=== PATIENT | male | born 1950 | race Caucasian/White ===

== ENCOUNTER 2019-07-22 10:59 | Emergency (ER) | payer MEDICARE ==
[2019-07-22] MEDS ORDERED: Sodium Chloride 0.9% 10 ML Syringe FLUSH PRN (11:09)
[2019-07-22] MEDS ORDERED: Aspirin 81 MG Tab.Chew PO ONE (11:09)
[2019-07-22] MEDS ORDERED: Nitroglycerin 0.4 MG Tab.SL SL PRN (11:09)
[2019-07-22] MEDS ORDERED: Morphine 4 MG/ML Syringe IVPUSH PRN (11:09)
--- NOTE | 2019-07-22 11:13 | EDM.PDOC ---
ED HPI GENERAL MEDICAL PROBLEM - General Chief Complaint: Chest Pain Stated Complaint: POSSIBLE STROKE Time Seen by Provider: 07/22/19 11:09 Source of Information: Reports: Patient, RN Notes Reviewed History Limitations: Reports: No Limitations - History of Present Illness INITIAL COMMENTS - FREE TEXT/NARRATIVE: 69-year-old gentleman presents emergency department today complaint of diaphoresis and palpitations, he does have a known history coronary artery disease as well as congestive heart failure with reduced ejection fraction around 25%. Does have a history of myocardial infarction in the past. He states that today he was out working in the yard suddenly became very diaphoretic and felt palpitations he did sit down and rest felt some relief reported to the emergency department for further evaluation. He is able to provide a more detailed history at this time while he was working he was carrying a bird house that was heavy suddenly became diaphoretic week short of breath and nauseated, upon resting he had improvement and resolution of his systems. He does have a history of paroxysmal atrial fibrillation of which she takes Eliquis was last in atrial fibrillation in 2018 cardioversion to convert to sinus rhythm also takes sotalol and carvedilol - Related Data Allergies Allergy/AdvReac Type Severity Reaction Status Date / Time amoxicillin Allergy Facial Verified 07/22/19 11:12 Swelling Sulfa (Sulfonamide Allergy Hives Verified 07/22/19 11:12 Antibiotics) Home Meds: Home Meds Apixaban [Eliquis] 5 mg PO BID 07/22/19 [History] Carvedilol [Coreg] 1 tab PO BID 07/22/19 [History] Furosemide [Lasix] 1 tab PO DAILY 07/22/19 [History] Lisinopril 1 tab PO DAILY 07/22/19 [History] Sotalol HCl [Sotalol] 1 tab PO BID 07/22/19 [History] Past Medical History Cardiovascular History: Reports: CAD, Heart Failure, DC Social & Family History - Tobacco Use Smoking Status *Q: Former Smoker ED ROS GENERAL - Review of Systems Review Of Systems: See Below Constitutional: Reports: Diaphoresis HEENT: Reports: No Symptoms Respiratory: Reports: No Symptoms Cardiovascular: Reports: Palpitations GI/Abdominal: Reports: No Symptoms : Reports: No Symptoms ED EXAM, GENERAL - Physical Exam Exam: See Below Exam Limited By: No Limitations General Appearance: Alert, Mild Distress Respiratory/Chest: No Respiratory Distress, Lungs Clear, Normal Breath Sounds Cardiovascular: Regular Rate, Rhythm, No Murmur GI/Abdominal: Soft, Non-Tender Extremities: Normal Inspection, Non-Tender, No Pedal Edema Course - Vital Signs Last Recorded V/S: Last Vital Signs Temp 95 F L 07/22/19 11:15 Pulse 59 L 07/22/19 13:35 Resp 19 07/22/19 13:35 BP 119/62 07/22/19 13:35 Pulse Ox 97 07/22/19 13:35 - Orders/Labs/Meds Orders: Active Orders 24 hr Category Date Time Status Cardiac Monitoring [RC] .As Directed Care 07/22/19 11:09 Active Cardiac Monitoring [RC] STAT Care 07/22/19 14:10 Active EKG Documentation Completion [RC] ASDIRECTED Care 07/22/19 11:10 Active Peripheral IV Care [RC] . DIRECTED Care 07/22/19 11:10 Active Heparin Sodium/D5W [Heparin 25,000 Units in D5W 500 ML] Med 07/22/19 14:15 Active 25,000 units in 500 ml IV TITRATE Morphine Med 07/22/19 11:09 Active 4 mg IVPUSH Q10M PRN Nitroglycerin [Nitrostat] Med 07/22/19 11:09 Active 0.4 mg SL Q5M PRN Sodium Chloride 0.9% [Saline Flush] Med 07/22/19 11:09 Active 10 ml FLUSH ASDIRECTED PRN atorvaSTATin [Lipitor] Med 07/22/19 15:21 Once 40 mg PO ONETIME ONE Peripheral IV Insertion Adult [OM.PC] Stat Oth 07/22/19 11:09 Ordered Saline Lock Insert [OM.PC] Stat Oth 07/22/19 11:09 Ordered EKG 12 Lead [EK] Stat Ther 07/22/19 11:10 Ordered Medication Orders Heparin Sodium/Dextrose (Heparin 25,000 Units In D5w 500 Ml) 25,000 units in 500 mls @ 16.765 mls/hr IV TITRATE REMY; Protocol Last Admin: 07/22/19 14:48 Dose: 12 units/kg/hr, 16.765 mls/hr Morphine Sulfate (Morphine) 4 mg IVPUSH Q10M PRN PRN Reason: Chest Pain Stop: 07/23/19 11:10 Nitroglycerin (Nitrostat) 0.4 mg SL Q5M PRN PRN Reason: Chest Pain Stop: 07/23/19 11:10 Sodium Chloride (Saline Flush) 10 ml FLUSH ASDIRECTED PRN PRN Reason: Keep Vein Open Last Admin: 07/22/19 11:29 Dose: 10 ml Labs: Laboratory Tests 07/22/19 07/22/19 07/22/19 Range/Units 11:15 11:15 13:30 WBC 7.2 (4.5-11.0) K/uL RBC 5.13 (4.30-5.90) M/uL Hgb 15.5 H (12.0-15.0) g/dL Hct 46.5 (40.0-54.0) % MCV 91 (80-98) fL MCH 30 (27-31) pg MCHC 33 (32-36) % Plt Count 158 (150-400) K/uL Neut % (Auto) 58 (36-66) % Lymph % (Auto) 30 (24-44) % Nelson % (Auto) 8 H (2-6) % Eos % (Auto) 3 (2-4) % Baso % (Auto) 1 (0-1) % Sodium 139 L (140-148) mmol/L Potassium 4.3 (3.6-5.2) mmol/L Chloride 102 (100-108) mmol/L Carbon Dioxide 27 (21-32) mmol/L Anion Gap 14.3 H (5.0-14.0) mmol/L BUN 13 (7-18) mg/dL Creatinine 1.3 (0.8-1.3) mg/dL Est Cr Clr Drug Dosing 52.24 mL/min Estimated GFR (MDRD) 55 L (>60) Glucose 184 H (74-106) mg/dL Calcium 9.1 (8.5-10.1) mg/dL Total Bilirubin 0.9 (0.2-1.0) mg/dL AST 66 H (15-37) U/L ALT 37 (12-78) U/L Alkaline Phosphatase 133 H (46-116) U/L Troponin I < 0.017 0.107 H* (0.000-0.056) ng/mL Total Protein 6.6 (6.4-8.2) g/dL Albumin 3.4 (3.4-5.0) g/dL Globulin 3.2 (2.3-3.5) g/dL Albumin/Globulin Ratio 1.1 L (1.2-2.2) Meds: Medications Generic Name Dose Route Start Last Admin Trade Name Freq PRN Reason Stop Dose Admin Heparin Sodium/Dextrose 25,000 units in 500 mls @ 16.765 mls/hr 07/22/19 14: 15 07/22/19 14:48 Heparin 25,000 Units In D5w 500 Ml IV 12 units/kg/hr TITRATE REMY 16.765 mls/hr Administration Protocol 12 UNITS/KG/HR Morphine Sulfate 4 mg 07/22/19 11:09 Morphine IVPUSH 07/23/19 11:10 Q10M PRN Chest Pain Nitroglycerin 0.4 mg 07/22/19 11:09 Nitrostat SL 07/23/19 11:10 Q5M PRN Chest Pain Sodium Chloride 10 ml 07/22/19 11:09 07/22/19 11:29 Saline Flush FLUSH 10 ml ASDIRECTED PRN Administration Keep Vein Open Discontinued Medications Generic Name Dose Route Start Last Admin Trade Name Freq PRN Reason Stop Dose Admin Aspirin 324 mg 07/22/19 11:09 07/22/19 11:29 Aspirin PO 07/22/19 11:10 Not Given ONETIME ONE Clopidogrel Bisulfate 300 mg 07/22/19 14:10 07/22/19 14:44 Plavix PO 07/22/19 14:11 300 mg ONETIME ONE Administration Heparin Sodium (Porcine) 4,000 units 07/22/19 14:10 07/22/19 14:45 Heparin Sodium IVPUSH 07/22/19 14:11 4,000 units ONETIME ONE Administration Departure - Departure Time of Disposition: 15:22 Disposition: DC/Tfer to Acute Hospital 02 Reason for Transfer *Q: Primary PCI Indicated Condition: Fair Clinical Impression: Non-STEMI (non-ST elevated myocardial infarction) Referrals: PCP,None [Primary Care Provider] - Forms: ED Department Discharge - My Orders Last 24 Hours: My Active Orders 07/22/19 11:09 Cardiac Monitoring [RC] .As Directed Morphine 4 mg IVPUSH Q10M PRN Nitroglycerin [Nitrostat] 0.4 mg SL Q5M PRN Sodium Chloride 0.9% [Saline Flush] 10 ml FLUSH ASDIRECTED PRN Peripheral IV Insertion Adult [OM.PC] Stat Saline Lock Insert [OM.PC] Stat 07/22/19 11:10 EKG Documentation Completion [RC] ASDIRECTED Peripheral IV Care [RC] . DIRECTED EKG 12 Lead [EK] Stat 07/22/19 14:10 Cardiac Monitoring [RC] STAT 07/22/19 14:15 Heparin Sodium/D5W [Heparin 25,000 Units in D5W 500 ML] 25,000 units in 500 ml IV TITRATE 07/22/19 15:21 atorvaSTATin [Lipitor] 40 mg PO ONETIME ONE - Assessment/Plan Last 24 Hours: My Active Orders 07/22/19 11:09 Cardiac Monitoring [RC] .As Directed Morphine 4 mg IVPUSH Q10M PRN Nitroglycerin [Nitrostat] 0.4 mg SL Q5M PRN Sodium Chloride 0.9% [Saline Flush] 10 ml FLUSH ASDIRECTED PRN Peripheral IV Insertion Adult [OM.PC] Stat Saline Lock Insert [OM.PC] Stat 07/22/19 11:10 EKG Documentation Completion [RC] ASDIRECTED Peripheral IV Care [RC] . DIRECTED EKG 12 Lead [EK] Stat 07/22/19 14:10 Cardiac Monitoring [RC] STAT 07/22/19 14:15 Heparin Sodium/D5W [Heparin 25,000 Units in D5W 500 ML] 25,000 units in 500 ml IV TITRATE 07/22/19 15:21 atorvaSTATin [Lipitor] 40 mg PO ONETIME ONE Plan: Assessment Acuity = acute Site and laterality = non-ST myocardial infarction complicated in a patient with known history coronary artery disease as well as congestive heart failure ejection fraction around 25% Etiology = probable coronary artery disease Manifestations = none Location of injury = Home Lab values = CBC, CMP unremarkable initial troponin was negative at less than 0.017, follow-up troponin 2 hours later was elevated 0.107 consistent with myocardial damage, EKG initially did show ST depressions in V4 and 5 with Q waves in lead 3, chest x-ray shows cardiomegaly otherwise no acute process. Plan He was given aspirin prior to arrival, 300 mg Plavix 4000 unit heparin bolus with heparin drip in route. There is a time delay due to transfer of care because he would not make a decision on where he wanted to go until he could consult with his 14:15, called and discussed case with Dr. Beltran [facility] at 1515 he kindly accepted the patient in transport will add 40 mg atorvastatin prior to transport he will be transported via EMS ground with heparin drip This note was dictated using [employer] voice recognition software please call with any questions on syntax or grammar.
--- NOTE | 2019-07-22 12:13 | CR ---
Chest 1V Frontal: 07/22/2019 11:44 AM INDICATION: Chest Pain COMPARISON: None. TECHNIQUE: Single AP view of the chest was obtained. FINDINGS: Chronic interstitial prominence and emphysematous changes are present. Minimal linear opacity is present at the right lung base which likely represents scarring or atelectasis. Minimal biapical scarring is also present. Lungs are otherwise clear without evidence of consolidation or edema. Cardiomediastinal silhouette is moderately enlarged. No acute osseous abnormality. IMPRESSION: Chronic changes and cardiomegaly without apparent acute cardiopulmonary disease.
[2019-07-22] MEDS ORDERED: Heparin Sodium 5,000 Units/ML Vial IVPUSH ONE (14:10)
[2019-07-22] MEDS ORDERED: Clopidogrel 75 MG Tab PO ONE (14:10)
[2019-07-22] MEDS ORDERED: Heparin Sodium/D5W 25,000 UNITS/500 ML BAG IV SCH (14:15)
[2019-07-22] MEDS ORDERED: atorvaSTATin 20 MG Tab PO ONE (15:21)
== END 2019-07-22 18:39 ==
LOC: JP.ED 10:59
DX: I21.4 Non-ST elevation (NSTEMI) myocardial infarction (principal); I50.9 Heart failure, unspecified; I25.10 Atherosclerotic heart disease of native coronary artery without angina pectoris; I25.2 Old myocardial infarction; Z87.891 Personal history of nicotine dependence; Z88.0 Allergy status to penicillin; Z79.899 Other long term (current) drug therapy; Z79.01 Long term (current) use of anticoagulants; Z88.2 Allergy status to sulfonamides
CPT/HCPCS: 36415; 71045; 80053; 84484; 85025; 93005; 96365; 96366; 99285; A9270; J1644

== ENCOUNTER 2023-05-08 09:42 | Emergency (ER) | payer MEDICARE ==
[2023-05-08] MEDS ORDERED: Sodium Chloride 0.9% 1,000 ML IV ONE (09:52)
[2023-05-08] MEDS ORDERED: Sodium Chloride 0.9% 10 ML Syringe FLUSH PRN (09:52)
[2023-05-08 10:14] LABS: BASOPHILS ABSOLUTE AUTO 0.04 K/uL (0.00-0.10); BASOPHILS PERCENT AUTO 0.5 % (0.1-1.3); EOSINOPHILS ABSOLUTE AUTO 0.04 K/uL (0.00-0.40); EOSINOPHILS PERCENT AUTO 0.5 % (0.0-5.4); HEMATOCRIT 38.5 % (38.4-49.7); HEMOGLOBIN 13.3 g/dL (12.9-16.9); IMMATURE GRAN ABSOLUTE AUTO 0.07 K/uL (0.00-0.23); IMMATURE GRAN PERCENT AUTO 0.9 % (0.0-0.7); LYMPHOCYTES ABSOLUTE AUTO 0.95 K/uL (0.8-3.3); LYMPHOCYTES PERCENT AUTO 11.7 % (11.4-47.7); MEAN CORPUSCULAR HEMOGLOBIN 32.2 pg (31.6-35.5); MEAN CORPUSCULAR HGB CONC 34.5 g/dL (31.6-35.5); MEAN CORPUSCULAR VOLUME 93.2 fL (81.4-99.0); MONOCYTES ABSOLUTE AUTO 0.55 K/uL (0.20-0.90); MONOCYTES PERCENT AUTO 6.7 % (3.3-12.6); NEUTROPHILS PERCENT AUTO 79.7 % (40.0-78.1); PLATELET COUNT,PLT 248 K/uL (130-375); RED BLOOD CELL COUNT 4.13 M/uL (4.14-5.76); WHITE BLOOD CELL COUNT,WBC 8.2 K/uL (3.2-11.0)
[2023-05-08] MEDS ORDERED: Propofol 200 MG/20 ML SDV ONE (10:39)
[2023-05-08 10:42] LABS: CALCIUM 8.7 mg/dL (8.5-10.1); EST CRCL DRUG DOSING (CG) 13.4 mL/min; MAGNESIUM 1.7 mg/dL (1.8-2.4); POTASSIUM,K 3.7 mmol/L (3.6-5.2); T4 FREE 1.76 ng/dL (0.76-1.46); TROPONIN I HIGH SENSITIVITY 44.2 pg/mL (<=60.3); TSH ULTRASENSITIVE 2.238 uIU/mL (0.358-3.740)
[2023-05-08 10:46] LABS: ANION GAP 18.7 mmol/L (5.0-14.0)
[2023-05-08 10:47] LABS: CREATININE 4.5 mg/dL (0.8-1.3)
[2023-05-08 12:21] LABS: APPEARANCE,URINE SLIGHTLY CLOUDY (CLEAR); BILIRUBIN,URINE NEGATIVE (NEGATIVE); COLOR,URINE YELLOW (YELLOW); GLUCOSE,URINE NEGATIVE (NEGATIVE); KETONES,URINE NEGATIVE (NEGATIVE); LEUKOCYTE ESTERASE,URINE NEGATIVE (NEGATIVE); NITRITE,URINE NEGATIVE (NEGATIVE); OCCULT BLOOD,URINE NEGATIVE (NEGATIVE); PROTEIN,URINE 100 mg/dL (NEGATIVE); UROBILINOGEN,URINE 0.2 EU/dL (0.2-1.0)
[2023-05-08 12:37] LABS: AMORPHOUS SEDIMENT,URINE MANY; BACTERIA,URINE RARE; EPITHELIAL CELLS,URINE RARE; MUCUS,URINE FEW; RBC,URINE 0-5 (0-5); WBC,URINE 0-5 (0-5)
== END 2023-05-08 13:20 | disposition home or self-care (01) ==
LOC: JP.ED 09:42
DX: R55 Syncope and collapse (principal); N17.9 Acute kidney failure, unspecified; E83.42 Hypomagnesemia; E05.90 Thyrotoxicosis, unspecified without thyrotoxic crisis or storm; R00.0 Tachycardia, unspecified; I25.10 Atherosclerotic heart disease of native coronary artery without angina pectoris; I50.9 Heart failure, unspecified; I25.2 Old myocardial infarction; J44.9 Chronic obstructive pulmonary disease, unspecified; I48.91 Unspecified atrial fibrillation; Z88.0 Allergy status to penicillin; Z88.2 Allergy status to sulfonamides; Z79.899 Other long term (current) drug therapy; Z79.01 Long term (current) use of anticoagulants; Z95.0 Presence of cardiac pacemaker
CPT/HCPCS: 36415; 71045; 80048; 81001; 83735; 83880; 84145; 84439; 84443; 84484; 85025; 92960; 93005; 93010; 96360; 99285; 99291; J2704; J7030